=== PATIENT | female | born 1985 | race Two or more races ===

== ENCOUNTER 2021-11-10 10:24 | Emergency (ER) | payer SELFPAY ==
[~2021-11-10] VITALS: Ht 172.7 cm; Wt 124.8 kg
[2021-11-10 10:40] VITALS: BP 170/104
[2021-11-10] MEDS ORDERED: KETOROLAC 60 MG/2 ML VIAL. IM ONE (11:00)
--- NOTE | 2021-11-10 11:15 | PHYS DOC ---
Past History Additional Past Medical Histor: spondylolisthesis, lumbar pain, (HAM RAZO APRN) Past Surgical History: Other Additional Past Surgical Histo: partial thyroidectomy (HAM RAZO APRN) Alcohol Use: None (HAM RAZO APRN) General Adult EDM: Chief Complaint: OTHER COMPLAINTS HPI: HPI: Patient is a 36-year-old female presents with chronic, low back pain and complains of numbness and tingling all over her body. Patient states that symptoms have been present for the last 2 months. Patient was seen by her nurse practitioner and has a follow-up appointment on the . Patient had imaging done of her thoracic spine 2 days ago at this ER. No acute findings. Patient's been taking Flexeril at home for discomfort which has helped. Patient denies any new injury. No urinary retention or loss of bowel. Denies saddle anesthesia. No weakness or other neuro symptoms. Denies recent illness. No fever, chest pain, shortness of breath. History of chronic back pain. Patient was fully vaccinated for COVID-19. (HAM RAZO APRN) Review of Systems: Review of Systems: Constitutional: Denies fever or chills Eyes: Denies change in visual acuity HENT: Denies nasal congestion or sore throat Respiratory: Denies cough or shortness of breath Cardiovascular: Denies chest pain or edema GI: Denies abdominal pain, nausea, vomiting, bloody stools or diarrhea : Denies dysuria Musculoskeletal: Denies back pain or joint pain Integument: Denies rash Neurologic: Denies headache, focal weakness or sensory changes Endocrine: Denies polyuria or polydipsia Lymphatic: Denies swollen glands Psychiatric: Denies depression or anxiety (HAM RAZO APRN) Current Medications: Current Meds: Current Medications Medications (Trade) Dose Ordered Sig/Moraima Start Time Stop Time Status Last Admin Dose Admin Ketorolac Tromethamine (Toradol Im) 60 mg 1X ONCE 11/10/21 11:00 11/10/21 11:01 (HAM RAZO APRN) Allergies: Allergies: Allergies Coded Allergies Type Severity Reaction Last Updated Verified No Known Drug Allergies 11/10/21 No (HAM RAZO APRN) Physical Exam: PE: Constitutional: Well developed, well nourished, no acute distress, non-toxic appearance. [] HENT: Normocephalic, atraumatic, bilateral external ears normal, oropharynx moist, no oral exudates, nose normal. [] Eyes: PERRLA, EOMI, conjunctiva normal, no discharge. [] Neck: Normal range of motion, no tenderness, supple, no stridor. [] Cardiovascular:Heart rate regular rhythm, no murmur [] Lungs & Thorax: Bilateral breath sounds clear to auscultation [] Abdomen: Bowel sounds normal, soft, no tenderness, no masses, no pulsatile masses. [] Skin: Warm, dry, no erythema, no rash. [] Back: Chronic lower back tenderness, no CVA tenderness. [] Extremities: No tenderness, no cyanosis, no clubbing, ROM intact, no edema. [] Neurologic: Alert and oriented X 3, normal motor function, normal sensory function, reporting numbness and tingling throughout her body, no focal deficits noted. [] Psychologic: Affect normal, judgement normal, anxious mood (HAM RAZO APRN) Current Patient Data: Vital Signs: Vital Signs Date Time Temp Pulse Resp B/P (MAP) Pulse Ox O2 Delivery O2 Flow Rate FiO2 11/10/21 10:40 98.2 97 16 170/104 (126) 98 Room Air (HAM RAZO APRN) EKG: EKG: [] (HAM RAZO APRN) Radiology/Procedures: Radiology/Procedures: [] (HAM RAZO APRN) Heart Score: C/O Chest Pain: No Risk Factors: Risk Factors: DM, Current or recent (<one month) smoker, HTN, HLP, family history of CAD, obesity. Risk Scores: Score 0 - 3: 2.5% MACE over next 6 weeks - Discharge Home Score 4 - 6: 20.3% MACE over next 6 weeks - Admit for Clinical Observation Score 7 - 10: 72.7% MACE over next 6 weeks - Early Invasive Strategies (HAM RAZO APRN) Course & Med Decision Making: Course & Med Decision Making Pertinent Labs and Imaging studies reviewed. (See chart for details) [] 36-year-old who presents with lower, chronic back pain and generalized numbness and tingling all over her body. Patient has been seen for the same complaint numerous times and had x-rays 2 days ago in this ER. X-rays showed no acute findings. Patient's numbness and tingling has been for the last few months and has been seen by her nurse practitioner. Patient has a follow-up scheduled for the ninth. Patient has no other neuro symptoms. No weakness. Denies urinary retention or loss of bowel, no saddle anesthesia. Patient's pain was treated in the emergency room with IM Toradol. Patient has Flexeril at home to take for discomfort. Advised patient to continue taking Flexeril and ibuprofen at home and to keep follow-up appointment with PCP. Discussed return precautions. Patient verbalizes understanding. Patient is hemodynamically stable and able to ambulate on her own out of the ER. (HAM RAZO APRN) Dragon Disclaimer: Dragon Disclaimer: This electronic medical record was generated, in whole or in part, using a voice recognition dictation system. (HAM RAZO APRN) Attending Co-Sign The patient was seen and interviewed as well as examined at the bedside. The chart was reviewed. The case was discussed. Agree with the plan of care. (LAURENT ISAACS DO) Departure Departure: Impression: Primary Impression: Chronic lower back pain Qualified Codes: M54.50 - Low back pain, unspecified; G89.29 - Other chronic pain Disposition: HOME / SELF CARE / HOMELESS Condition: STABLE Referrals: TOBY NAJERA APRN (PCP) Patient Instructions: Back Exercises, [id number], Back Pain, Adult Additional Instructions: You were seen in the emergency room for low back pain. You were given an IM Toradol injection. Continue taking your Flexeril at home for pain. You can also take ibuprofen and use ice to the areas that are tender. Your x-rays you had 2 days ago did not show any acute changes. You need to follow-up with your PCP for further management. Some of your symptoms could possibly have to do with your vitamin deficiencies. That is also something you will need to discuss with your primary care doctor on your next appointment. Please return to the emergency room if you have worsening symptoms or concerns such as increase in pain that you cannot manage at home, loss of bowel, urinary retention, altered mental status or unable to ambulate. EMERGENCY DEPARTMENT GENERAL DISCHARGE INSTRUCTIONS Thank you for coming to [facility] (ED) today and trusting us with you care. We trust that you had a positivie experience in our Emergency Department. If you wish to speak to the department management, you may call the director at [phone]. YOUR FOLLOW UP INSTRUCTIONS ARE FOLLOWS: 1. Do you have a private Doctor? If you do not have a private doctor, please ask for a resource list of physicians or clinics that may be able to assist you with follow up care. 2. The Emergency Physician has interpreted your x-rays. The X-Ray specialist will also review them. If there is a change in the findings, you will be notified in 48 hours when at all possible. 3. A lab test or culture has been done, your results will be reviewed and you will be notified if you need a change in treatment. ADDITIONAL INSTRUCTIONS AND INFORMATION: 1. Your care today has been supervised by a physician who is specially trained in emergency care. Many problems require more than one evaluation for a complete diagnosis and treatment. We recommend that you schedule your follow up appointment as recommended to ensure complete treatment of you illness or injury. If you are unable to obtain follow up care and continue to have a problem, or if your condition worsens, we recommend that you return to the ED. 2. We are not able to safely determine your condition over the phone nor are we able to give sound medical advice over the phone. For these safety reasons, if you call for medical advice we will ask you to come to the ED for further evaluation. 3. If you have any questions regarding these discharge instructions please call the ED at [phone]. SAFETY INFORMATION: In the interest of safety, wellness, and injury prevention; we encourage you to wear your sealbelt, if you smoke; quite smoking, and we encourage family to use a protective helmet for bicycling and other sporting events that present an increased risk for head injury. IF YOUR SYMPTOMS WORSEN OR NEW SYMPTOMS DEVELOP, OR YOU HAVE CONCERNS ABOUT YOUR CONDITION; OR IF YOUR CONDITION WORSENS WHILE YOU ARE WAITING FOR YOUR FOLLOW UP APPOINTMENT; EITHER CONTACT YOUR PRIMARY CARE DOCTOR, THE PHYSICIAN WHOSE NAME AND NUMBER YOU WERE GIVEN, OR RETURN TO THE ED IMMEDIATELY. HAM RAZO APRN Nov 10, 2021 11:15 LAURENT ISAACS DO Nov 11, 2021 19:49
[2021-11-10] MEDS ORDERED: ONDANSETRON ODT 4 MG TAB.RAPDIS PO ONE (11:45)
== END 2021-11-10 11:44 | disposition home or self-care (01) ==
LOC: ER 10:24
DX: G89.29 Other chronic pain (principal); M54.59 Other low back pain
CPT/HCPCS: 96372; 99283; J1885; Q0162